=== PATIENT | female | born 1970 | race Caucasian/White ===

== ENCOUNTER 2024-05-22 12:37 | Inpatient (IN) | payer MEDICAID ==
[2024-05-22 12:49] LABS: HEMATOCRIT 32.1 % (37.0-47.0); HEMOGLOBIN 10.9 g/dL (12.0-16.0); MEAN CORPUSCULAR HEMOGLOBIN 34.5 pg (28.0-32.0); MEAN CORPUSCULAR VOLUME 101.6 fL (83.0-99.0); NRBC ABSOLUTE 0.27 K/uL (0.00-0.02); NRBC PERCENT 1.9 /100WBC (0.0-0.2); PLATELET COUNT,PLT 376 K/uL (150-400); RED BLOOD CELL COUNT 3.16 M/uL (4.10-5.30)
[2024-05-22 12:57] LABS: PH,VENOUS 7.39 (7.32-7.43)
[2024-05-22 12:58] LABS: BASE EXCESS VENOUS 8.5 (-2.0-3.0)
[2024-05-22 13:04] LABS: INR 1.08 (0.86-1.11); PTT,PARTIAL THROMBOPLSTIN TIME 26.5 SEC (23.9-30.7)
[2024-05-22 13:19] LABS: LACTIC ACID 1.4 mmol/L (0.4-2.0)
[2024-05-22 13:24] LABS: APPEARANCE,URINE CLEAR; BILIRUBIN,URINE NEGATIVE (NEGATIVE); COLOR,URINE YELLOW; GLUCOSE,URINE NEGATIVE (NEGATIVE); KETONES,URINE NEGATIVE (NEGATIVE); LEUKOCYTE ESTERASE,URINE NEGATIVE (NEGATIVE); NITRITE,URINE NEGATIVE (NEGATIVE); OCCULT BLOOD,URINE NEGATIVE (NEGATIVE); PROTEIN,URINE NEGATIVE (NEGATIVE)
[2024-05-22] MEDS: Cefepime 2 GM in Sodium Chloride 0.9% 50 ML IV STA (13:24)
[2024-05-22 13:31] LABS: A/G RATIO 0.9 (0.9-1.6); ALBUMIN 3.2 g/dL (3.4-5.0); BILIRUBIN TOTAL 0.7 mg/dL (0.2-1.0); CALCIUM 8.9 mg/dL (8.5-10.1); CARBON DIOXIDE,CO2 32.3 mmol/L (21.0-32.0); CREATININE 0.7 mg/dL (0.6-1.0); EST CRCL DRUG DOSING (CG) 80.26 mL/min; MAGNESIUM 2.1 mg/dL (1.8-2.4); POTASSIUM,K 4.1 mmol/L (3.5-5.1); PROTEIN TOTAL,TP 6.9 g/dL (6.4-8.2)
[2024-05-22 13:51] LABS: BAND ABSOLUTE MAN 4.17; LYMPHOCYTES ABSOLUTE MAN 4.17 K/uL (1.00-4.80); LYMPHOCYTES PERCENT MAN 30 % (24-44); SEG NEUTROPHILS ABSOLUTE MAN 8.34 K/uL (1.80-7.70); SEG NEUTROPHILS PERCENT MAN 60 % (41-71)
[2024-05-22 13:52] LABS: BASOPHILS ABSOLUTE MAN 0.14 K/uL (0.00-0.20); BASOPHILS PERCENT MAN 1 % (0-1); MONOCYTES ABSOLUTE MAN 1.25 K/uL (0.00-0.80); MONOCYTES PERCENT MAN 9 % (0-8)
[2024-05-22] MEDS: Furosemide 40 MG/4 ML VIAL IVPUSH ONE (15:04)
[2024-05-22] MEDS: Iopamidol 755 MG/ML 500 ML Multipack Bottle IVPUSH STA (16:09)
[2024-05-22] MEDS: Acetaminophen 500 MG Tab PO ONE (16:49)
[2024-05-22 20:06] LABS: CORONAVIRUS COVID-19 NAA NEGATIVE (NEGATIVE); INFLUENZA A NAA NEGATIVE (NEGATIVE); INFLUENZA B NAA NEGATIVE (NEGATIVE)
[2024-05-22] MEDS: Azithromycin 500 MG in Sodium Chloride 0.9% 250 ML IV SCH (21:17)
[2024-05-22] MEDS: Enoxaparin 40 MG/0.4 ML Syringe SUBCUT SCH (21:17)
[2024-05-22] MEDS: Nicotine 14 MG/24 Hr Patch TRDERM SCH (22:29)
[2024-05-23] MEDS: cefTRIAXone 1 GM in Sodium Chloride 0.9% 50 ML IV SCH (01:19)
[2024-05-23] MEDS: traZODone 50 MG Tab PO ONE (01:19)
[2024-05-23] MEDS: Acetaminophen 325 MG Tab PO PRN (06:25)
[2024-05-23 06:37] LABS: BASOPHILS ABSOLUTE AUTO 0.08 K/uL (0.00-0.20); BASOPHILS PERCENT AUTO 0.6 % (0.0-1.0); EOSINOPHILS ABSOLUTE AUTO 0.11 K/uL (0.00-0.45); EOSINOPHILS PERCENT AUTO 0.8 % (0.0-6.0); HEMATOCRIT 33.1 % (37.0-47.0); HEMOGLOBIN 11.7 g/dL (12.0-16.0); IMMATURE GRAN ABSOLUTE AUTO 0.06 K/uL (0.00-0.05); IMMATURE GRAN PERCENT AUTO 0.4 % (0.0-0.4); LYMPHOCYTES ABSOLUTE AUTO 2.69 K/uL (1.00-4.80); MEAN CORPUSCULAR HEMOGLOBIN 35.5 pg (28.0-32.0); MEAN CORPUSCULAR HGB CONC 35.3 g/dL (32.0-36.0); MEAN CORPUSCULAR VOLUME 100.3 fL (83.0-99.0); MEAN PLATELET VOLUME 10.8 fL (9.4-12.3); MONOCYTES ABSOLUTE AUTO 1.34 K/uL (0.00-0.80); NEUTROPHILS ABSOLUTE AUTO 9.18 K/uL (1.80-7.70); NEUTROPHILS PERCENT AUTO 68.2 % (41.0-71.0); NRBC ABSOLUTE 0.54 K/uL (0.00-0.02); PLATELET COUNT,PLT 375 K/uL (150-400); WHITE BLOOD CELL COUNT,WBC 13.46 K/uL (3.9-11.3)
[2024-05-23 07:00] LABS: A/G RATIO 0.8 (0.9-1.6); ALBUMIN 3.1 g/dL (3.4-5.0); BILIRUBIN TOTAL 0.7 mg/dL (0.2-1.0); CALCIUM 8.7 mg/dL (8.5-10.1); CARBON DIOXIDE,CO2 36.7 mmol/L (21.0-32.0); CREATININE 0.6 mg/dL (0.6-1.0); EST CRCL DRUG DOSING (CG) 93.64 mL/min; PROTEIN TOTAL,TP 7.1 g/dL (6.4-8.2)
[2024-05-23] MEDS ORDERED: Ondansetron 4 MG/2 ML SDV IVPUSH PRN (08:15)
[2024-05-23 08:43] LABS: TSH ULTRASENSITIVE 0.56 uIU/mL (0.36-3.74)
[2024-05-23] MEDS ORDERED: Albuterol/Ipratropium 3.0-0.5 MG/3 ML Neb Soln NEB PRN (08:44)
[2024-05-23] MEDS: Potassium Chloride 20 MEQ Tab.ER PO SCH (09:32)
[2024-05-23] MEDS: Pantoprazole 40 MG Tab.CR PO SCH (09:32)
[2024-05-23] MEDS: predniSONE 20 MG Tab PO SCH (09:32)
[2024-05-23] MEDS: Acetaminophen 500 MG Tab PO PRN (09:42)
[2024-05-23] MEDS: Acetaminophen/HYDROcodone 325-5 MG Tab PO PRN (11:50)
[2024-05-23] MEDS: Gabapentin 300 MG Cap PO SCH (14:26)
[2024-05-23] MEDS: Aspirin 325 MG Tab PO SCH (14:48)
[2024-05-23] MEDS: Furosemide 40 MG/4 ML VIAL IVPUSH ONE (14:49)
[2024-05-23] MEDS: Potassium Chloride 20 MEQ Tab.ER PO ONE (17:22)
[2024-05-23] MEDS: Colchicine 0.6 MG Tab PO SCH (21:55)
[2024-05-24 05:02] LABS: BORDETELLA PARAPERT IS1001 Not Detected (Not Detected)
[2024-05-24 06:03] LABS: BASOPHILS ABSOLUTE AUTO 0.04 K/uL (0.00-0.20); BASOPHILS PERCENT AUTO 0.4 % (0.0-1.0); EOSINOPHILS ABSOLUTE AUTO 0.03 K/uL (0.00-0.45); EOSINOPHILS PERCENT AUTO 0.3 % (0.0-6.0); HEMOGLOBIN 12.2 g/dL (12.0-16.0); IMMATURE GRAN ABSOLUTE AUTO 0.03 K/uL (0.00-0.05); IMMATURE GRAN PERCENT AUTO 0.3 % (0.0-0.4); LYMPHOCYTES ABSOLUTE AUTO 3.34 K/uL (1.00-4.80); LYMPHOCYTES PERCENT AUTO 29.4 % (24.0-44.0); MEAN CORPUSCULAR HEMOGLOBIN 34.3 pg (28.0-32.0); MEAN CORPUSCULAR HGB CONC 33.9 g/dL (32.0-36.0); MEAN CORPUSCULAR VOLUME 101.1 fL (83.0-99.0); MONOCYTES ABSOLUTE AUTO 1.01 K/uL (0.00-0.80); MONOCYTES PERCENT AUTO 8.9 % (0.0-8.0); NEUTROPHILS PERCENT AUTO 60.7 % (41.0-71.0); NRBC ABSOLUTE 0.21 K/uL (0.00-0.02); NRBC PERCENT 1.9 /100WBC (0.0-0.2); PLATELET COUNT,PLT 395 K/uL (150-400); RED BLOOD CELL COUNT 3.56 M/uL (4.10-5.30); WHITE BLOOD CELL COUNT,WBC 11.35 K/uL (3.9-11.3)
[2024-05-24 06:35] LABS: C-REACTIVE PROTEIN 6.13 mg/dL (<0.3); CALCIUM 9.1 mg/dL (8.5-10.1); CARBON DIOXIDE,CO2 30.2 mmol/L (21.0-32.0); EST CRCL DRUG DOSING (CG) 56.18 mL/min; MAGNESIUM 2.1 mg/dL (1.8-2.4); POTASSIUM,K 4.3 mmol/L (3.5-5.1)
[2024-05-24] MEDS: Furosemide 40 MG/4 ML VIAL IVPUSH ONE (10:10)
[2024-05-25 05:59] LABS: BASOPHILS ABSOLUTE AUTO 0.06 K/uL (0.00-0.20); BASOPHILS PERCENT AUTO 0.8 % (0.0-1.0); EOSINOPHILS ABSOLUTE AUTO 0.19 K/uL (0.00-0.45); EOSINOPHILS PERCENT AUTO 2.5 % (0.0-6.0); HEMATOCRIT 37.2 % (37.0-47.0); HEMOGLOBIN 12.6 g/dL (12.0-16.0); IMMATURE GRAN ABSOLUTE AUTO 0.02 K/uL (0.00-0.05); IMMATURE GRAN PERCENT AUTO 0.3 % (0.0-0.4); LYMPHOCYTES ABSOLUTE AUTO 3.56 K/uL (1.00-4.80); LYMPHOCYTES PERCENT AUTO 46.7 % (24.0-44.0); MEAN CORPUSCULAR HEMOGLOBIN 34.5 pg (28.0-32.0); MEAN CORPUSCULAR HGB CONC 33.9 g/dL (32.0-36.0); MEAN CORPUSCULAR VOLUME 101.9 fL (83.0-99.0); MEAN PLATELET VOLUME 9.8 fL (9.4-12.3); MONOCYTES ABSOLUTE AUTO 0.86 K/uL (0.00-0.80); MONOCYTES PERCENT AUTO 11.3 % (0.0-8.0); NEUTROPHILS ABSOLUTE AUTO 2.93 K/uL (1.80-7.70); NEUTROPHILS PERCENT AUTO 38.4 % (41.0-71.0); NRBC ABSOLUTE 0.09 K/uL (0.00-0.02); NRBC PERCENT 1.2 /100WBC (0.0-0.2); PLATELET COUNT,PLT 451 K/uL (150-400); RED BLOOD CELL COUNT 3.65 M/uL (4.10-5.30); WHITE BLOOD CELL COUNT,WBC 7.62 K/uL (3.9-11.3)
[2024-05-25 06:34] LABS: C-REACTIVE PROTEIN 2.51 mg/dL (<0.3); CALCIUM 9.3 mg/dL (8.5-10.1); CARBON DIOXIDE,CO2 29.8 mmol/L (21.0-32.0); CREATININE 0.8 mg/dL (0.6-1.0); EST CRCL DRUG DOSING (CG) 70.23 mL/min; POTASSIUM,K 4.8 mmol/L (3.5-5.1)
[2024-05-25] MEDS: Furosemide 20 MG Tab PO ONE (10:49)
== END 2024-05-25 11:30 | disposition home or self-care (01) | DRG 314 ==
LOC: MW.ED 12:37 → MW.ICU 18:52 → MW.MS 05-24 11:58
PROVIDERS: ADMIT Internal Medicine; ATTEND Internal Medicine
DX: I30.1 Infective pericarditis (principal); I50.33 Acute on chronic diastolic (congestive) heart failure; J18.9 Pneumonia, unspecified organism; J96.01 Acute respiratory failure with hypoxia; J45.909 Unspecified asthma, uncomplicated; E78.00 Pure hypercholesterolemia, unspecified; E11.40 Type 2 diabetes mellitus with diabetic neuropathy, unspecified; F17.210 Nicotine dependence, cigarettes, uncomplicated; I11.0 Hypertensive heart disease with heart failure; E11.51 Type 2 diabetes mellitus with diabetic peripheral angiopathy without gangrene; Z90.710 Acquired absence of both cervix and uterus; Z88.5 Allergy status to narcotic agent; Z79.899 Other long term (current) drug therapy; Z79.82 Long term (current) use of aspirin; Z79.1 Long term (current) use of non-steroidal anti-inflammatories (NSAID)
CPT/HCPCS: 0240U; 36415; 71045; 71045-26; 71275; 71275-26; 80048; 80053; 81003; 82803; 83605; 83690; 83735; 83880; 84443; 84484; 85025; 85610; 85652; 85730; 86140; 86850; 86900; 86901; 87040; 87486; 87581; 87633; 93005; 93010; 93306; 94667; 96365; 96375; 99222; 99232; 99238; 99285; 99285-25; A9270-GY; J0456; J0692; J0696; J1650; J1940; J7050; Q9967

== ENCOUNTER 2024-10-05 11:32 | Emergency (ER) | payer BC ==
[2024-10-05] MEDS ORDERED: Sodium Chloride 0.9% 10 ML Syringe FLUSH PRN (11:52)
[2024-10-05] MEDS ORDERED: Sodium Chloride 0.9% 2.5 ML Syringe FLUSH PRN (11:52)
[2024-10-05] MEDS: fentaNYL 100 MCG/2 ML SDV IVPUSH ONE (11:59)
[2024-10-05 12:01] LABS: BASOPHILS ABSOLUTE AUTO 0.11 K/uL (0.00-0.20); BASOPHILS PERCENT AUTO 0.8 % (0.0-1.0); EOSINOPHILS ABSOLUTE AUTO 0.28 K/uL (0.00-0.45); EOSINOPHILS PERCENT AUTO 2.0 % (0.0-6.0); IMMATURE GRAN ABSOLUTE AUTO 0.03 K/uL (0.00-0.05); IMMATURE GRAN PERCENT AUTO 0.2 % (0.0-0.4); LYMPHOCYTES ABSOLUTE AUTO 4.50 K/uL (1.00-4.80); LYMPHOCYTES PERCENT AUTO 31.9 % (24.0-44.0); MEAN PLATELET VOLUME 12.0 fL (9.4-12.3); MONOCYTES ABSOLUTE AUTO 1.15 K/uL (0.00-0.80); MONOCYTES PERCENT AUTO 8.2 % (0.0-8.0); NEUTROPHILS ABSOLUTE AUTO 8.02 K/uL (1.80-7.70); NEUTROPHILS PERCENT AUTO 56.9 % (41.0-71.0); NRBC ABSOLUTE 0.00 K/uL (0.00-0.02); NRBC PERCENT 0.0 /100WBC (0.0-0.2); PLATELET COUNT,PLT 314 K/uL (150-400); RED BLOOD CELL COUNT 4.58 M/uL (4.10-5.30); WHITE BLOOD CELL COUNT,WBC 14.09 K/uL (3.9-11.3)
[2024-10-05] MEDS: Ondansetron 4 MG/2 ML SDV IVPUSH ONE (12:01)
[2024-10-05 12:39] LABS: A/G RATIO 1.0 (0.9-1.6); ALANINE AMINOTRANSFERASE,ALT 39.0 IU/L (14-63); ASPARTATE AMNIOTRANSFERASE,AST 34.0 IU/L (15-37); BILIRUBIN TOTAL 0.3 mg/dL (0.2-1.0); BLOOD UREA NITROGEN,BUN 6.0 mg/dL (7.0-18.0); CARBON DIOXIDE,CO2 28.7 mmol/L (21.0-32.0); CHLORIDE,CL 100.0 mmol/L (98-107); CREATININE 0.9 mg/dL (0.6-1.0); EST CRCL DRUG DOSING (CG) 62.42 mL/min; GLUCOSE RANDOM 109.0 mg/dL (74-106); POTASSIUM,K 3.7 mmol/L (3.5-5.1); PROTEIN TOTAL,TP 7.5 g/dL (6.4-8.2); SODIUM,NA 137.0 mmol/L (136-145)
[2024-10-05 12:41] LABS: APPEARANCE,URINE CLEAR; GLUCOSE,URINE NEGATIVE (NEGATIVE); OCCULT BLOOD,URINE NEGATIVE (NEGATIVE)
[2024-10-05 12:49] LABS: ESTIMATED GFR 76.0 mL/min (>60)
[2024-10-05] MEDS: Iopamidol 755 MG/ML 500 ML Multipack Bottle IVPUSH STA (14:08)
[2024-10-05] MEDS: Orphenadrine 60 MG/2 ML Inj IV ONE (15:07)
== END 2024-10-05 15:19 | disposition home or self-care (01) ==
LOC: MW.ED 11:32
DX: R10.9 Unspecified abdominal pain (principal); I10 Essential (primary) hypertension; E78.00 Pure hypercholesterolemia, unspecified; J44.9 Chronic obstructive pulmonary disease, unspecified; E11.9 Type 2 diabetes mellitus without complications; Z88.5 Allergy status to narcotic agent; Z79.82 Long term (current) use of aspirin; Z79.899 Other long term (current) drug therapy; Z75.3 Unavailability and inaccessibility of health-care facilities
CPT/HCPCS: 36415; 71046; 74177; 80053; 81003; 83690; 83735; 84484; 85025; 85379; 93005; 96361; 96374; 96375; 99285; A9270; J2360; J2405; J3010; J7030; Q9967; 93010; 99284; J1171

== ENCOUNTER 2024-10-07 22:58 | Emergency (ER) | payer BC ==
[2024-10-07] MEDS: Furosemide 40 MG/4 ML VIAL IVPUSH ONE (23:20)
[2024-10-07 23:29] LABS: BASOPHILS ABSOLUTE AUTO 0.09 K/uL (0.00-0.20); BASOPHILS PERCENT AUTO 0.4 % (0.0-1.0); EOSINOPHILS ABSOLUTE AUTO 0.18 K/uL (0.00-0.45); EOSINOPHILS PERCENT AUTO 0.8 % (0.0-6.0); IMMATURE GRAN ABSOLUTE AUTO 0.13 K/uL (0.00-0.05); IMMATURE GRAN PERCENT AUTO 0.6 % (0.0-0.4); LYMPHOCYTES ABSOLUTE AUTO 2.49 K/uL (1.00-4.80); LYMPHOCYTES PERCENT AUTO 10.8 % (24.0-44.0); MEAN PLATELET VOLUME 11.9 fL (9.4-12.3); MONOCYTES ABSOLUTE AUTO 1.39 K/uL (0.00-0.80); MONOCYTES PERCENT AUTO 6.0 % (0.0-8.0); NEUTROPHILS ABSOLUTE AUTO 18.87 K/uL (1.80-7.70); NEUTROPHILS PERCENT AUTO 81.4 % (41.0-71.0); NRBC ABSOLUTE 0.10 K/uL (0.00-0.02); NRBC PERCENT 0.4 /100WBC (0.0-0.2); PLATELET COUNT,PLT 296 K/uL (150-400); RED BLOOD CELL COUNT 4.35 M/uL (4.10-5.30); WHITE BLOOD CELL COUNT,WBC 23.15 K/uL (3.9-11.3)
[2024-10-07 23:33] LABS: BICARBONATE,ARTERIAL 29 mEq/L (21-28); PCO2 ARTERIAL 44 mmHG (35-45); PO2 ARTERIAL 77 mmHG (83-108)
[2024-10-07 23:34] LABS: BASE EXCESS ARTERIAL 4.2 (-2.0-3.0)
[2024-10-07 23:58] LABS: A/G RATIO 0.8 (0.9-1.6); ALANINE AMINOTRANSFERASE,ALT 34.0 IU/L (14-63); BILIRUBIN TOTAL 0.7 mg/dL (0.2-1.0); BLOOD UREA NITROGEN,BUN 8.0 mg/dL (7.0-18.0); CARBON DIOXIDE,CO2 27.9 mmol/L (21.0-32.0); CHLORIDE,CL 99.0 mmol/L (98-107); CREATININE 1.0 mg/dL (0.6-1.0); EST CRCL DRUG DOSING (CG) 46.73 mL/min; GLUCOSE RANDOM 166.0 mg/dL (74-106); POTASSIUM,K 3.8 mmol/L (3.5-5.1); PRO B-TYPE NATRIUR PEPT,BNPPRO 1704.0 pg/mL (0-125); PROTEIN TOTAL,TP 6.7 g/dL (6.4-8.2); SODIUM,NA 136.0 mmol/L (136-145)
[2024-10-08 00:02] LABS: ESTIMATED GFR 67.0 mL/min (>60)
[2024-10-08 00:11] LABS: ASPARTATE AMNIOTRANSFERASE,AST 31.0 IU/L (15-37)
[2024-10-08] MEDS: Ondansetron 4 MG/2 ML SDV ONE (00:16)
[2024-10-08] MEDS: Ondansetron 4 MG/2 ML SDV IVPUSH ONE (00:21)
[2024-10-08] MEDS: cefTRIAXone 2 GM in Water For Injection, Sterile 20 ML IVPUSH ONE (00:22)
[2024-10-08 00:43] LABS: APPEARANCE,URINE CLEAR; GLUCOSE,URINE NEGATIVE (NEGATIVE); OCCULT BLOOD,URINE NEGATIVE (NEGATIVE)
[2024-10-08 00:52] LABS: EPITHELIAL CELLS,URINE NOT SEEN (NONE-FEW)
[2024-10-08] MEDS: Iopamidol 755 Mg/ML 100 ML Bottle IVPUSH ONE (01:15)
[2024-10-08 01:44] LABS: BASE EXCESS VENOUS 9.4 (-2.0-3.0); BICARBONATE,VENOUS 35.0 mEq/L (22-29); PCO2 VENOUS 52.0 mmHG (41-51); PH,VENOUS 7.44 (7.32-7.43); PO2 VENOUS 43.0 mmHG (35-45)
[2024-10-08] MEDS: Furosemide 40 MG/4 ML VIAL IVPUSH ONE (02:00)
== END 2024-10-08 04:15 ==
LOC: MW.ED 22:58
DX: A41.9 Sepsis, unspecified organism (principal); R65.20 Severe sepsis without septic shock; J96.01 Acute respiratory failure with hypoxia; I11.0 Hypertensive heart disease with heart failure; J90 Pleural effusion, not elsewhere classified; I50.9 Heart failure, unspecified; R23.0 Cyanosis; J18.9 Pneumonia, unspecified organism; E78.00 Pure hypercholesterolemia, unspecified; J44.9 Chronic obstructive pulmonary disease, unspecified; E11.9 Type 2 diabetes mellitus without complications; Z88.5 Allergy status to narcotic agent; Z79.899 Other long term (current) drug therapy; Z79.82 Long term (current) use of aspirin
CPT/HCPCS: 36415; 36600; 71045; 71275; 80053; 81001; 82803; 83605; 83735; 83880; 84484; 85025; 87040; 87426; 93005; 94660; 96365; 96375; 99285; A4216; J0696; J1271; J1938; J2405; Q9967; 93010; J1171

== ENCOUNTER 2024-12-24 21:05 | Emergency (ER) | payer BC ==
[2024-12-25] MEDS ORDERED: Naloxone 0.4 MG/ML SDV IVPUSH PRN (02:00)
[2024-12-25] MEDS: fentaNYL 50 MCG/ML SDV IVPUSH ONE (02:10)
== END 2024-12-25 02:30 ==
LOC: MW.ED 21:05
DX: S52.502A Unspecified fracture of the lower end of left radius, initial encounter for closed fracture (principal); S52.602A Unspecified fracture of lower end of left ulna, initial encounter for closed fracture; I10 Essential (primary) hypertension; E78.00 Pure hypercholesterolemia, unspecified; J44.9 Chronic obstructive pulmonary disease, unspecified; E11.9 Type 2 diabetes mellitus without complications; Z75.3 Unavailability and inaccessibility of health-care facilities; Z88.5 Allergy status to narcotic agent; Z79.899 Other long term (current) drug therapy; Z79.82 Long term (current) use of aspirin; W18.39XA Other fall on same level, initial encounter; Y93.89 Activity, other specified
CPT/HCPCS: 25605; 73100; 73110; 96374; 99284; A9270; J0665; J2003; J3010; 99285